=== PATIENT | male | born 1970 | race Caucasian/White ===

== ENCOUNTER 2017-02-21 09:25 | Day surgery (SDC) | payer BC ==
[~2017-02-21 09:25] MED LIST: LIDOCAINE W/ SODIUM BICARB 0.5 ML SYR ONE; Lactated Ringers 1,000 ML PRIMARY IV ONE; MIDAZOLAM 5 MG/1 ML ONE; fentaNYL Inj 100 MCG/2 ML VIAL ONE
--- NOTE | 2017-02-21 10:25 | GEN.OPNOTE ---
Colonoscopy Procedure Note Surgery Date: 02/21/17 Preoperative Diagnosis: Family history of colon cancer Postoperative Diagnosis: Family history of colon cancer Procedure: Colonoscopy Surgeon: Jameson Upton MD Anesthesia Provider: Edi Pozo CRNA Anesthesia Type: MAC Indications: Patient is family history of colon cancer is given a colonoscopy every 5 years Findings: Prep : Excellent Cecum : Olympus video colonoscopy scope inserted gadolinium the cecum. Ileocecal valve clearly identified. Patient normal. Cecum Ascending : Ascending colons within normal limits Transverse : Transverse colon had diverticulosis Sigmoid : Descending and sigmoid colon had diverticulosis Rectum : No rectal pathology note Digital Rectal Exam : No rectal masses appreciated smooth prostate A lubricated flexible colonoscope was inserted and passed to the blind end of the cecum.
[2017-02-21 11:13] VITALS: RESP 16
[2017-02-21 11:24] VITALS: TEMP 97.2
== END 2017-02-21 10:55 | disposition home or self-care (01) ==
LOC: SDSC 09:25
PROVIDERS: ATTEND Surgery
DX: Z80.0 Family history of malignant neoplasm of digestive organs (principal)
CPT/HCPCS: 45378; J2704; J3010; J2250; J7120